=== PATIENT | male | born 2000 | race Caucasian/White ===

== ENCOUNTER 2019-07-17 11:48 | Emergency (ER) | payer OTHER, SELFPAY ==
[2019-07-17 13:36] LABS: Urine Blood TRACE (NEG); Urine Glucose NEGATIVE (NEG); Urine Protein NEGATIVE (NEG); Urine Specific Gravity >1.030 (1.005-1.030)
[2019-07-17 13:48] LABS: Urine Bacteria <20 /HPF (NONE SEEN); Urine RBC <5 /HPF (NONE SEEN)
[2019-07-17 13:49] LABS: Urine Culture Reflex Order REFLEXED
--- NOTE | 2019-07-17 14:50 | ER ---
Nurse's Notes [facility] Name: Satish Norwood Age: 19 yrs Sex: Male : 2000 Arrival Date: 07/17/2019 Time: 11:51 Bed 30 Private MD: Diagnosis: Urethritis and urethral syndrome Presentation: 07/16 12:24 Chief complaint: Patient states: "I have STD like symptoms." Reports burning and pain jl7 with urination and white penile discharge x 2 days. Coronavirus screen: Proceed with normal triage. Patient denies a cough. Patient denies shortness of breath or difficulty breathing. Patient denies measured and/or subjective temperature greater than 100.4F prior to today's visit. Patient denies travel on a cruise ship or to a country the [facility] currently lists as an affected area. Patient denies contact with known and/or suspected case of COVID-19. Ebola Screen: No symptoms or risks identified at this time. Initial Sepsis Screen: Does the patient meet any 2 criteria? No. Patient's initial sepsis screen is negative. Does the patient have a suspected source of infection? No. Patient's initial sepsis screen is negative. Risk Assessment: Do you want to hurt yourself or someone else? Patient reports no desire to harm self or others. Onset of symptoms was July 15, 2019. 12:24 Method Of Arrival: Ambulatory [facility] 12:24 Acuity: DAPHNE 4 jl7 Triage Assessment: 12:27 General: Appears in no apparent distress. uncomfortable, Behavior is cooperative, jl7 anxious. Pain: Complains of pain in pelvis Pain currently is 8 out of 10 on a pain scale. Neuro: Level of Consciousness is awake, alert, obeys commands, Oriented to person, place, time, situation. Cardiovascular: Patient's skin is warm and dry. Respiratory: Airway is patent Respiratory effort is even, unlabored, Respiratory pattern is regular, symmetrical. : Reports burning with urination, discharge, from penis that is white, pain with urination. Derm: Skin is pink, warm \\T\\ dry. Historical: - Allergies: 12:27 NKA; jl7 - Home Meds: 12:27 None [Active]; jl7 - PMHx: 12:27 None; jl7 - PSHx: 12:27 None; jl7 - Immunization history:: Adult Immunizations not up to date. - Social history:: Smoking status: Patient reports the use of cigarette tobacco products, smokes one-half pack cigarettes per day, Patient uses alcohol, occasionally. Screenin:43 Abuse screen: Denies threats or abuse. Denies injuries from another. Nutritional iw screening: No deficits noted. Tuberculosis screening: No symptoms or risk factors identified. Fall Risk None identified. Assessment: 14:42 General: Appears in no apparent distress. Behavior is calm, cooperative. Pain: iw Complains of pain in pelvis. Neuro: Level of Consciousness is awake, alert, obeys commands, Oriented to person, place, time, situation, Moves all extremities. Full function. Cardiovascular: Patient's skin is warm and dry. Respiratory: Respiratory effort is even, unlabored, Respiratory pattern is regular, symmetrical. : Reports burning with urination, discharge, from penis that is. Derm: Skin is intact, is healthy with good turgor. Musculoskeletal: Range of motion: intact in all extremities. Vital Signs: 12:24 BP 138 / 100; Pulse 85; Resp 16; Temp 98.4; Pulse Ox 100% ; Weight 58.97 kg; Pain 8/10; jl7 ED Course: 11:51 Patient arrived in ED. ag5 12:27 Triage completed. jl7 12:27 Arm band placed on right wrist. jl7 12:30 Patient has correct armband on for positive identification. iw 14:36 Génesis Talley FNP-C [facility]. snw 14:37 Cornell Jackson MD is Attending Physician. snw 14:39 Yvonne Hirsch RN is Primary Nurse. iw 14:43 No provider procedures requiring assistance completed. Patient did not have IV access iw during this emergency room visit. Administered Medications: 15:15 Drug: Rocephin (cefTRIAXone) 500 mg Route: IM; Site: right deltoid; iw 15:19 Drug: Zithromax 1 grams Route: PO; iw 15:19 Drug: Zofran (Ondansetron) 4 mg Route: PO; iw Outcome: 14:50 Discharge ordered by . snw 15:44 Discharged to home ambulatory. iw 15:44 Condition: good 15:44 Discharge instructions given to patient, Instructed on discharge instructions, follow up and referral plans. medication usage, Demonstrated understanding of instructions, follow-up care, medications, Prescriptions given X 1. 15:45 Patient left the ED. iw Signatures: Génesis Talley, WATER PUMP SERVICER-C WATER PUMP SERVICER-Csnw Yvonne Hirsch, RN RN Yang Sands RN RN jl7 Mandi Chavis 5
--- NOTE | 2019-07-17 14:51 | EDPHYS ---
Physician Documentation [facility] Name: Satish Norwood Age: 19 yrs Sex: Male : 2000 Arrival Date: 07/17/2019 Time: 11:51 Bed 30 Private MD: ED Physician Cornell Jackson HPI: 07/16 15:36 This 19 yrs old Male presents to ER via Ambulatory with complaints of snw Possible STI. 15:36 The patient presents with a possible STD exposure, symptoms include dysuria, snw tenderness. Onset: The symptoms/episode began/occurred suddenly, 3 day(s) ago, and became persistent. Associated signs and symptoms: Pertinent positives: dysuria. Severity of symptoms: At their worst the symptoms were moderate. The patient has not experienced similar symptoms in the past. The patient has not recently seen a physician. + unprotected intercourse with one partner. Historical: - Allergies: 12:27 NKA; jl7 - Home Meds: 12:27 None [Active]; jl7 - PMHx: 12:27 None; jl7 - PSHx: 12:27 None; jl7 - Immunization history:: Adult Immunizations not up to date. - Social history:: Smoking status: Patient reports the use of cigarette tobacco products, smokes one-half pack cigarettes per day, Patient uses alcohol, occasionally. ROS: 15:35 Constitutional: Negative for fever, chills, and weight loss, Eyes: Negative for injury, snw pain, redness, and discharge, ENT: Negative for injury, pain, and discharge, Neck: Negative for injury, pain, and swelling, Cardiovascular: Negative for chest pain, palpitations, and edema, Respiratory: Negative for shortness of breath, cough, wheezing, and pleuritic chest pain, Abdomen/GI: Negative for abdominal pain, nausea, vomiting, diarrhea, and constipation, Back: Negative for injury and pain, MS/Extremity: Negative for injury and deformity, Skin: Negative for injury, rash, and discoloration, Neuro: Negative for headache, weakness, numbness, tingling, and seizure, Psych: Negative for depression, anxiety, suicide ideation, homicidal ideation, and hallucinations. 15:35 : Positive for urinary symptoms, penile discharge, unprotected intercourse. Exam: 15:34 Constitutional: This is a well developed, well nourished patient who is awake, alert, snw and in no acute distress. Head/Face: Normocephalic, atraumatic. Eyes: Pupils equal round and reactive to light, extra-ocular motions intact. Lids and lashes normal. Conjunctiva and sclera are non-icteric and not injected. Cornea within normal limits. Periorbital areas with no swelling, redness, or edema. ENT: Nares patent. No nasal discharge, no septal abnormalities noted. Tympanic membranes are normal and external auditory canals are clear. Oropharynx with no redness, swelling, or masses, exudates, or evidence of obstruction, uvula midline. Mucous membranes moist. Neck: Trachea midline, no thyromegaly or masses palpated, and no cervical lymphadenopathy. Supple, full range of motion without nuchal rigidity, or vertebral point tenderness. No Meningismus. Chest/axilla: Normal chest wall appearance and motion. Nontender with no deformity. No lesions are appreciated. Cardiovascular: Regular rate and rhythm with a normal S1 and S2. No gallops, murmurs, or rubs. Normal PMI, no JVD. No pulse deficits. Respiratory: Lungs have equal breath sounds bilaterally, clear to auscultation and percussion. No rales, rhonchi or wheezes noted. No increased work of breathing, no retractions or nasal flaring. Abdomen/GI: Soft, non-tender, with normal bowel sounds. No distension or tympany. No guarding or rebound. No evidence of tenderness throughout. Back: No spinal tenderness. No costovertebral tenderness. Full range of motion. Male : Normal genitalia with no discharge or lesions. Skin: Warm, dry with normal turgor. Normal color with no rashes, no lesions, and no evidence of cellulitis. MS/ Extremity: Pulses equal, no cyanosis. Neurovascular intact. Full, normal range of motion. Neuro: Awake and alert, GCS 15, oriented to person, place, time, and situation. Cranial nerves II-XII grossly intact. Motor strength 5/5 in all extremities. Sensory grossly intact. Cerebellar exam normal. Normal gait. Psych: Awake, alert, with orientation to person, place and time. Behavior, mood, and affect are within normal limits. Vital Signs: 12:24 BP 138 / 100; Pulse 85; Resp 16; Temp 98.4; Pulse Ox 100% ; Weight 58.97 kg; Pain 8/10; jl7 MDM: 14:40 Patient medically screened. snw 15:35 Data reviewed: vital signs, nurses notes. Data interpreted: Pulse oximetry: on room air snw is 100 %. Interpretation: normal. Counseling: I had a detailed discussion with the patient and/or guardian regarding: the historical points, exam findings, and any diagnostic results supporting the discharge/admit diagnosis, lab results, the need for outpatient follow up, for definitive care, to return to the emergency department if symptoms worsen or persist or if there are any questions or concerns that arise at home. Special discussion: Based on the history and exam findings, there is no indication for further emergent testing or inpatient evaluation. I discussed with the patient/guardian the need to see the primary care provider for further evaluation of the symptoms. Safe sex practices. Medical screen evaluation completed. [facility] emergency medical condition absent. 07/16 12:40 Order name: Urine Microscopic Only; Complete Time: 14:37 jl7 07/16 12:57 Order name: Urine Dipstick--Ancillary (enter results); Complete Time: 14:37 bd 07/16 13:51 Order name: Urine Culture EDMA 07/16 12:40 Order name: Urine Dipstick-Ancillary (obtain specimen); Complete Time: 14:42 jl7 Administered Medications: 15:15 Drug: Rocephin (cefTRIAXone) 500 mg Route: IM; Site: right deltoid; iw 15:19 Drug: Zithromax 1 grams Route: PO; iw 15:19 Drug: Zofran (Ondansetron) 4 mg Route: PO; iw Disposition: 17:15 Co-signature as Attending Physician, Cornell Jackson MD I agree with the assessment and kdr plan of care. Disposition: 07/17/19 14:50 Discharged to Home. Impression: Urethritis and urethral syndrome. - Condition is Stable. - Discharge Instructions: Hypertension, Sexually Transmitted Disease, Urethritis, Adult, How to Take Your Blood Pressure, [id number], Form - Blood Pressure Record Sheet, Safe Sex. - Medication Reconciliation Form, Thank You Letter, Antibiotic Education, Prescription Opioid Use form. - Follow up: Emergency Department; When: As needed; Reason: Worsening of condition. Follow up: Private Physician; When: 2 - 3 days; Reason: Recheck today's complaints, Continuance of care, Re-evaluation by your physician. Signatures: Dispatcher [employer] EDMS Cornell Jackson MD MD kdr Therrien, Shelly, LINEN ROOM HOUSEPERSON-C LINEN ROOM HOUSEPERSON-Csnw Yvonne Hirsch, RN RN iw Yang Urena RN RN jl7 Corrections: (The following items were deleted from the chart) 15:45 14:50 07/17/2019 14:50 Discharged to Home. Impression: Urethritis and urethral iw syndrome. Condition is Stable. Forms are Medication Reconciliation Form, Thank You Letter, Antibiotic Education, Prescription Opioid Use. Follow up: Emergency Department; When: As needed; Reason: Worsening of condition. Follow up: Private Physician; When: 2 - 3 days; Reason: Recheck today's complaints, Continuance of care, Re-evaluation by your physician. snw
[2019-07-17] MEDS ORDERED: LIDOCAINE 1% MPF 5 ML VIAL ONE ×2 (15:13→19:26)
[2019-07-17] MEDS ORDERED: CEFTRIAXONE 500 MG/VIAL ONE (15:13)
[2019-07-17] MEDS ORDERED: ONDANSETRON 4 MG (ODT) TAB ONE (15:13)
[2019-07-17] MEDS ORDERED: AZITHROMYCIN 250 MG TAB ONE (15:13)
[2019-07-17] MEDS ORDERED: MIDAZOLAM HCL 2 MG/2 ML INJ ONE (19:26)
[2019-07-17] MEDS ORDERED: FENTANYL CITR 100 MCG/2 ML ONE (19:26)
[2019-07-17] MEDS ORDERED: propofoL 200 MG/20 ML VIAL IV ONE (19:26)
[2019-07-17] MEDS ORDERED: ONDANSETRON 4 MG/2 ML VIAL ONE (19:27)
[2019-07-17] MEDS ORDERED: KETOROLAC 30 MG/ML INJ ONE (19:27)
[2019-07-18 14:39] VITALS: BP 138/100; TEMP 98.4; O2SAT 100
== END 2019-07-17 15:45 | disposition home or self-care (01) ==
LOC: ER 11:48
DX: N34.3 Urethral syndrome, unspecified (principal); N34.2 Other urethritis; F17.210 Nicotine dependence, cigarettes, uncomplicated
CPT/HCPCS: 81003; 81015; 87086; 87088; 96372; 99283; J0696; J2250; J2405; J2704; J3010

== ENCOUNTER 2019-09-09 18:37 | Emergency (ER) | payer SELFPAY ==
--- NOTE | 2019-09-09 19:30 | ER ---
Nurse's Notes [facility] Name: Satish Norwood Age: 19 yrs Sex: Male : 2000 Arrival Date: 09/09/2019 Time: 18:40 Bed 6 Private MD: Diagnosis: Urinary tract infection, site not specified;Urethral discharge, unspecified Presentation: 09/08 18:44 Chief complaint: Patient states: hematuria, penile discharge for about a month. Was sv seen here over a month ago for the same thing. Coronavirus screen: Proceed with normal triage. Patient denies a cough. Patient denies shortness of breath or difficulty breathing. Patient denies measured and/or subjective temperature greater than 100.4F prior to today's visit. Patient denies travel on a cruise ship or to a country the [facility] currently lists as an affected area. Patient denies contact with known and/or suspected case of COVID-19. Ebola Screen: No symptoms or risks identified at this time. Risk Assessment: Do you want to hurt yourself or someone else? Patient reports no desire to harm self or others. Onset of symptoms was July 2019. 18:44 Method Of Arrival: Ambulatory sv 18:44 Acuity: DAPHNE 3 sv 18:48 Initial Sepsis Screen: Does the patient meet any 2 criteria? No. Patient's initial sv sepsis screen is negative. Does the patient have a suspected source of infection? No. Patient's initial sepsis screen is negative. Triage Assessment: 18:45 General: Appears in no apparent distress. comfortable, Behavior is calm, cooperative, sv appropriate for age. Neuro: Level of Consciousness is awake, alert, obeys commands, Oriented to person, place, time, situation, Gait is steady. Respiratory: Respiratory effort is even, unlabored. : Reports discharge, bloody. Historical: - Allergies: 18:45 NKA; sv - PMHx: 18:45 None; sv - PSHx: 18:45 None; sv - Immunization history:: Adult Immunizations up to date. - Family history:: not pertinent. - Social history:: Smoking status: unknown. Screenin:15 Abuse screen: Denies threats or abuse. Denies injuries from another. rv 19:15 Nutritional screening: No deficits noted. Tuberculosis screening: No symptoms or risk rv factors identified. Fall Risk None identified. Assessment: 19:15 General: Appears comfortable, Behavior is calm, cooperative. Pain: Denies pain. Neuro: rv Level of Consciousness is awake, alert, obeys commands, Oriented to person, place, time, situation. 19:15 Cardiovascular: Patient's skin is warm and dry. Respiratory: Airway is patent. : rv Penile discharge is yellow, Reports discharge, from penis that is yellow. Derm: Skin is intact. Vital Signs: 18:46 BP 132 / 90; Pulse 75; Resp 16; Temp 98.2; Pulse Ox 98% ; Weight 58.97 kg; Height 5 ft. sv 5 in. (165.10 cm); 19:59 BP 126 / 86; Pulse 81; Resp 17; Temp 98; Pulse Ox 99% on R/A; rv 18:46 Body Mass Index 21.63 (58.97 kg, 165.10 cm) sv ED Course: 18:40 Patient arrived in ED. mr 18:44 Arm band placed on. sv 18:45 Triage completed. sv 18:59 Sukumar Owen MD is Attending Physician. [facility] 18:59 Attending Physician role handed off by Sukumar Owen MD leanne 18:59 Juan Hopper MD is Attending Physician. leanne 19:15 Patient has correct armband on for positive identification. Placed in gown. Bed in low rv position. Pulse ox on. NIBP on. 19:17 Maldonado Moralez, RN is Primary Nurse. bp 19:35 Wet prep swab sent to lab. rv 19:58 No provider procedures requiring assistance completed. Patient did not have IV access rv during this emergency room visit. Administered Medications: 19:30 Drug: Rocephin (cefTRIAXone) 1 grams Route: IM; Site: left deltoid; rv 19:59 Follow up: Response: No adverse reaction rv 19:30 Drug: Zithromax 1 grams Route: PO; rv 19:59 Follow up: Response: No adverse reaction rv 19:30 Drug: Doxycycline 200 mg Route: PO; rv 19:59 Follow up: Response: No adverse reaction rv Outcome: 19:30 Discharge ordered by . leanne 19:58 Discharged to home ambulatory. rv 19:58 Condition: good 19:58 Discharge instructions given to patient, Instructed on discharge instructions, follow up and referral plans. medication usage, Demonstrated understanding of instructions, follow-up care, medications, Prescriptions given X 2. 20:00 Patient left the ED. rv Signatures: Fidelia Ruiz RN RN sv Juan Hopper MD MD cha Rivera, Mary mr Maldonado Moralez RN RN bp Harman Monique RN RN rv Sukumar Owen MD MD [id number] Corrections: (The following items were deleted from the chart) 18:48 18:46 Pulse 75bpm; Resp 16bpm; Pulse Ox 98%; Temp 98.2F; 58.97 kg; Height 5 ft. 5 in.; sv BMI: 21.6; sv 19:53 19:30 Rocephin (cefTRIAXone) 1 grams IM in left deltoid bp rv 19:53 19:30 Zithromax 1 grams PO bp rv 19:53 19:30 Doxycycline 200 mg PO bp rv 19:57 19:52 Wet prep swab sent to lab. bp rv
--- NOTE | 2019-09-09 19:31 | EDPHYS ---
Physician Documentation [facility] Name: Satish Norwood Age: 19 yrs Sex: Male : 2000 Arrival Date: 09/09/2019 Time: 18:40 Bed 6 Private MD: ED Physician Juan Hopper HPI: 09/08 19:20 This 19 yrs old Male presents to ER via Ambulatory with complaints of Urinary leanne Problem. 19:20 The patient presents with urinary symptoms, dysuria, urinary frequency. Onset: The leanne symptoms/episode began/occurred 3 day(s) ago. Modifying factors: The symptoms are alleviated by nothing, the symptoms are aggravated by urinating. Associated signs and symptoms: The patient has no apparent associated signs or symptoms. Severity of symptoms: At their worst the symptoms were mild, moderate, in the emergency department the symptoms are unchanged. The patient has not experienced similar symptoms in the past. Historical: - Allergies: 18:45 NKA; sv - PMHx: 18:45 None; sv - PSHx: 18:45 None; sv - Immunization history:: Adult Immunizations up to date. - Family history:: not pertinent. - Social history:: Smoking status: unknown. ROS: 19:20 Constitutional: Negative for fever, chills, and weight loss, Eyes: Negative for injury, leanne pain, redness, and discharge, ENT: Negative for injury, pain, and discharge, Neck: Negative for injury, pain, and swelling, Cardiovascular: Negative for chest pain, palpitations, and edema, Respiratory: Negative for shortness of breath, cough, wheezing, and pleuritic chest pain, Abdomen/GI: Negative for abdominal pain, nausea, vomiting, diarrhea, and constipation, Back: Negative for injury and pain, MS/Extremity: Negative for injury and deformity, Skin: Negative for injury, rash, and discoloration, Neuro: Negative for headache, weakness, numbness, tingling, and seizure, Psych: Negative for depression, anxiety, suicide ideation, homicidal ideation, and hallucinations, Allergy/Immunology: Negative for hives, rash, and allergies, Endocrine: Negative for neck swelling, polydipsia, polyuria, polyphagia, and marked weight changes, Hematologic/Lymphatic: Negative for swollen nodes, abnormal bleeding, and unusual bruising. 19:20 : Positive for urinary symptoms, hematuria, burning with urination, difficulty urinating, penile pain. Exam: 19:20 Constitutional: This is a well developed, well nourished patient who is awake, alert, leanne and in no acute distress. Head/Face: Normocephalic, atraumatic. Eyes: Pupils equal round and reactive to light, extra-ocular motions intact. Lids and lashes normal. Conjunctiva and sclera are non-icteric and not injected. Cornea within normal limits. Periorbital areas with no swelling, redness, or edema. ENT: Nares patent. No nasal discharge, no septal abnormalities noted. Tympanic membranes are normal and external auditory canals are clear. Oropharynx with no redness, swelling, or masses, exudates, or evidence of obstruction, uvula midline. Mucous membranes moist. Neck: Trachea midline, no thyromegaly or masses palpated, and no cervical lymphadenopathy. Supple, full range of motion without nuchal rigidity, or vertebral point tenderness. No Meningismus. Chest/axilla: Normal chest wall appearance and motion. Nontender with no deformity. No lesions are appreciated. Cardiovascular: Regular rate and rhythm with a normal S1 and S2. No gallops, murmurs, or rubs. Normal PMI, no JVD. No pulse deficits. Respiratory: Lungs have equal breath sounds bilaterally, clear to auscultation and percussion. No rales, rhonchi or wheezes noted. No increased work of breathing, no retractions or nasal flaring. Abdomen/GI: Soft, non-tender, with normal bowel sounds. No distension or tympany. No guarding or rebound. No evidence of tenderness throughout. Back: No spinal tenderness. No costovertebral tenderness. Full range of motion. Skin: Warm, dry with normal turgor. Normal color with no rashes, no lesions, and no evidence of cellulitis. MS/ Extremity: Pulses equal, no cyanosis. Neurovascular intact. Full, normal range of motion. Neuro: Awake and alert, GCS 15, oriented to person, place, time, and situation. Cranial nerves II-XII grossly intact. Motor strength 5/5 in all extremities. Sensory grossly intact. Cerebellar exam normal. Normal gait. Psych: Awake, alert, with orientation to person, place and time. Behavior, mood, and affect are within normal limits. 19:20 : CVA tenderness, is absent, Male external genitalia: normal, Circumcision noted. Bladder: is normal, Sexual behavior: the patient is sexually active, and reports a single partner. Vital Signs: 18:46 BP 132 / 90; Pulse 75; Resp 16; Temp 98.2; Pulse Ox 98% ; Weight 58.97 kg; Height 5 ft. sv 5 in. (165.10 cm); 19:59 BP 126 / 86; Pulse 81; Resp 17; Temp 98; Pulse Ox 99% on R/A; rv 18:46 Body Mass Index 21.63 (58.97 kg, 165.10 cm) sv MDM: 18:59 Patient medically screened. [facility] 19:28 Data reviewed: vital signs, nurses notes, lab test result(s), urinalysis. Data [facility] interpreted: compliance monitor: not applicable for this patient encounter. rate is 75 beats/min, Pulse oximetry: on room air is 98 %. Counseling: I had a detailed discussion with the patient and/or guardian regarding: the historical points, exam findings, and any diagnostic results supporting the discharge/admit diagnosis, lab results, the need for outpatient follow up, for definitive care, a family practitioner. ED course: no sex, follow up , get partner treated. 09/08 19:18 Order name: GC (GONORR/CHLAMYDIA) Probe [facility] 09/08 19:28 Order name: Urine Culture [facility] 09/08 19:28 Order name: Urine Culture [facility] 09/08 19:52 Order name: Urine Dipstick--Ancillary (enter results) [facility] 09/08 19:53 Order name: Urine Dipstick-Ancillary [facility] 09/08 19:28 Order name: Urine Dipstick-Ancillary (obtain specimen); Complete Time: 19:52 [facility] Administered Medications: 19:30 Drug: Rocephin (cefTRIAXone) 1 grams Route: IM; Site: left deltoid; rv 19:59 Follow up: Response: No adverse reaction rv 19:30 Drug: Zithromax 1 grams Route: PO; rv 19:59 Follow up: Response: No adverse reaction rv 19:30 Drug: Doxycycline 200 mg Route: PO; rv 19:59 Follow up: Response: No adverse reaction rv Disposition: 09/09/19 19:30 Discharged to Home. Impression: Urinary tract infection, site not specified, Urethral discharge, unspecified. - Condition is Stable. - Discharge Instructions: Dysuria, Sexually Transmitted Disease, Sexually Transmitted Disease, [id number], Urinary Tract Infection, Adult, Urinary Tract Infection, Adult, [id number]. - Prescriptions for Doxycycline Hyclate 100 mg Oral Tablet - take 1 tablet by ORAL route every 12 hours; 20 tablet. Cipro 500 mg Oral Tablet - take 1 tablet by ORAL route every 12 hours for 7 days; 14 tablet. - Medication Reconciliation Form, Thank You Letter, Antibiotic Education, Prescription Opioid Use form. - Follow up: Private Physician; When: 2 - 3 days; Reason: Recheck today's complaints, Continuance of care, Re-evaluation by your physician. - Problem is new. - Symptoms have improved. Signatures: Dispatcher [employer] Fidelia Munguia, RN RN Juan Doshi MD MD cha Peltier, Brian RN RN Harman Santamaria RN RN rv Corrections: (The following items were deleted from the chart) 20:00 19:30 09/09/2019 19:30 Discharged to Home. Impression: Urinary tract infection, site rv not specified; Urethral discharge, unspecified. Condition is Stable. Forms are Medication Reconciliation Form, Thank You Letter, Antibiotic Education, Prescription Opioid Use. Follow up: Private Physician; When: 2 - 3 days; Reason: Recheck today's complaints, Continuance of care, Re-evaluation by your physician. Problem is new. Symptoms have improved. leanne
[2019-09-09] MEDS ORDERED: AZITHROMYCIN 250 MG TAB ONE (19:32)
[2019-09-09] MEDS ORDERED: CEFTRIAXONE 1000 MG/VIAL ONE (19:33)
[2019-09-09] MEDS ORDERED: DOXYCYCLINE 100 MG CAP PO ONE (19:33)
[2019-09-09] MEDS ORDERED: WATER FOR INJ,STERILE 10 ML ONE (19:33)
[2019-09-09 20:08] VITALS: BP 126/86; TEMP 98; O2SAT 99
[2019-09-09 20:31] LABS: Urine Blood NEGATIVE (NEG); Urine Glucose NEGATIVE (NEG); Urine Protein TRACE (NEG); Urine Specific Gravity 1.025 (1.005-1.030); Urine pH 8.5 (5.0-7.0)
[2019-09-14 20:34] LABS: C.trachomatis RNA,TMA Not Detected (Not Detected)
== END 2019-09-09 20:00 | disposition home or self-care (01) ==
LOC: ER 18:37
DX: N39.0 Urinary tract infection, site not specified (principal); R36.9 Urethral discharge, unspecified
CPT/HCPCS: 81003; 87086; 87088; 87490; 87590; 96372; 99284